=== PATIENT | female | born 1995 | race Caucasian/White ===

== ENCOUNTER 2018-12-23 07:03 | Emergency (ER) | payer BC, MEDICAID ==
[2018-12-23 07:39] VITALS: BP 125/76
--- NOTE | 2018-12-23 07:41 | UC ---
Shoulder Pain HPI - HPI Summary HPI Summary: Patient presents to urgent care reporting progressive left posterior shoulder pain since this morning. Patient states last night she was lying on the couch propped up on her left arm doing a puzzle. Patient states when she went to move she felt pain and stiffness. Patient states intermittently she has pain and paresthesias down the lateral aspect of her upper arm. Patient without any extremity weakness. Patient's right-hand dominant. Patient took an over-the- counter medication unsure as Motrin Tylenol or today with little improvement. No direct trauma. No arm weakness. Patient states she's been rubbing it which seems to help. Patient's medications reviewed this visit. Patient states she is not . - History of Current Complaint Chief Complaint: UCUpperExtremity Stated Complaint: LEFT SHOULDER COMPLAINT Time Seen by Provider: 12/23/18 07:40 Hx Obtained From: Patient Hx Last Menstrual Period: 11/30/18 ?: No Onset/Duration: Sudden Onset Timing: Constant Severity Initially: Moderate Severity Currently: Moderate Pain Intensity: 8 Character: Sharp, Stiffness Aggravating Factor(s): Movement, Lifting - Allergies/Home Medications Allergies/Adverse Reactions: Allergies Allergy/AdvReac Type Severity Reaction Status Date / Time No Known Allergies Allergy Verified 12/23/18 07:34 Home Medications: Home Medications Ibuprofen TAB* [Advil TAB*] 400 mg PO Q6H PRN 12/23/18 [History Confirmed ] PMH/Surg Hx/FS Hx/Imm Hx Previously Healthy: Yes - Surgical History Surgical History: Yes Surgery Procedure, Year, and Place: c- section - Family History Known Family History: Positive: Non-Contributory - Social History Occupation: Employed Full-time Lives: With Family Alcohol Use: None Substance Use Type: None Smoking Status (MU): Never Smoked Tobacco Review of Systems All Other Systems Reviewed And Are Negative: Yes Constitutional: Positive: Negative Skin: Positive: Negative Musculoskeletal: Positive: Other: - left shoulder, left upper back pain Physical Exam - Summary Physical Exam Summary: Vital Signs Reviewed: Yes A+Ox3, discomfort with movement Eyes: Conjunctiva Clear, ARIELLE. EOM intact and full ENT: Hearing grossly normal TM x 2 clear, mmoist, uvula midline, no exudate, no erythema Neck: Positive: Supple Respiratory: Positive: No respiratory distress, No accessory muscle use + CTA throughout no w/r Cardiovascular: RRR nl s1, s2 no m/r CBT <2 sec 2+ radial abd soft + BS nt/nd no guarding, no distension Musculoskeletal Exam: no pain c/t/l/s + TTP left trapezius worse with direct palpation along trapezius + abduct left shoulder + extension left shoulder + flex/ext elbow + pronate/supinate + flex/ext wrist Neurological: Positive: Alert, + sensation throughout + gross sensatition + thumb up, a ok, finger cross, finger spread Psychological: Positive: Normal 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 Patient states she was lying on the left side on the couch propped up working on pulses. Patient states she felt stiffness and pain. Patient with shooting pain along the trapezius to her upper bicep. No weakness. On exam vital signs are stable. Patient appears comfortable with movement however does have full range of motion and good CSM. Patient with palpable spasm along the trapezius. Patient with full range of neck with spasm and discomfort. Heart and lungs are normal. We'll place patient in sling. Recommended heat, stretch, Motrin/Tylenol. Rest. Return precautions. Pt also given prescription for Flexeril precautions. Patient comfortable with plan. - Differential Dx/Diagnosis Provider Diagnosis: Trapezius muscle spasm Discharge - Sign-Out/Discharge Documenting (check all that apply): Patient Departure All imaging exams completed and their final reports reviewed: No Studies - Discharge Plan Condition: Stable Disposition: HOME Prescriptions: Cyclobenzaprine TAB* [Flexeril 10 MG TAB*] 5 - 10 mg PO Q8HR PRN #10 tab PRN Reason: muscle spasm Patient Education Materials: Muscle Spasm (ED) Forms: *Work Release Referrals: [facility]FERRAL [Outside] No Primary Care Phys,NOPCP [Primary Care Provider] - Additional Instructions: - Okay to alternate ibuprofen (Advil, Motrin) 600mg and Tylenol (acetaminophen) every 3 hours as needed for pain. Take with food. Do NOT take for more than 4-5 days. \ -Take flexeril - muscle relaxer as prescribed - this medication will likely cause drowsiness - do not drive, operate machinery or drink alcohol while taking this medication -Apply moist heat to your back for 20 minutes at a time, 4-5 times a day. Once your muscles are warm, slow gentle stretching exercises are important - wear arm sling for comfort and support -Contact your doctor today to arrange a follow-up appointment next week. -If you pain is uncontrolled, you develop arm weakness or you have any other symptoms, it is recommended you go to an emergency department for further evaluation and treatment - Billing Disposition and Condition Condition: STABLE Disposition: Home
== END 2018-12-23 08:05 | disposition home or self-care (01) ==
LOC: UCCORT 07:03
DX: M62.838 Other muscle spasm (principal)
CPT/HCPCS: 99213; G0463